=== PATIENT | female | born 1995 | race Two or more races ===

== ENCOUNTER 2022-12-08 09:49 | Emergency (ER) | payer OTHER ==
[~2022-12-08] VITALS: Ht 157.5 cm; Wt 58.1 kg
[2022-12-08] MEDS ORDERED: SINGULAIR10 MG PO (10:04)
[2022-12-08] MEDS ORDERED: KETO10TA2 PO (14:05)
== END 2022-12-08 14:34 | disposition home or self-care (01) ==
LOC: ER 09:49
DX: S99.822A Other specified injuries of left foot, initial encounter (principal); Y93.68 Activity, volleyball (beach) (court); X58.XXXA Exposure to other specified factors, initial encounter; Y92.89 Other specified places as the place of occurrence of the external cause; Y99.9 Unspecified external cause status

== ENCOUNTER 2023-02-25 09:29 | Outpatient (CLI) | payer OTHER ==
[~2023-02-25 09:29] MED LIST: KETO10TA2 PO; SINGULAIR10 MG PO
== END 2023-02-25 09:41 | disposition home or self-care (01) ==
LOC: MRI 09:29
PROVIDERS: ATTEND Orthopaedic Surgery
DX: S93.622A Sprain of tarsometatarsal ligament of left foot, initial encounter (principal)
CPT/HCPCS: 73718